=== PATIENT | male | born 1975 | race Caucasian/White ===

== ENCOUNTER 2018-09-07 08:47 | Emergency (ER) | payer OTHER ==
[~2018-09-07] VITALS: Ht 175.2 cm; Wt 79.4 kg
[2018-09-07] MEDS ORDERED: CYCLOBENZAPRINE10 MG PO (10:01)
== END 2018-09-07 10:06 | disposition home or self-care (01) ==
LOC: ED 08:47
DX: S16.1XXA Strain of muscle, fascia and tendon at neck level, initial encounter (principal); R42 Dizziness and giddiness; F17.200 Nicotine dependence, unspecified, uncomplicated; Z90.49 Acquired absence of other specified parts of digestive tract; V89.2XXA Person injured in unspecified motor-vehicle accident, traffic, initial encounter; Y93.89 Activity, other specified; Y92.89 Other specified places as the place of occurrence of the external cause; Y99.8 Other external cause status